=== PATIENT | male | born 1980 | race Caucasian/White ===

== ENCOUNTER 2025-02-17 07:32 | Outpatient (OUT) | payer OTHER, SELFPAY ==
--- OUTSIDE RECORDS SUMMARY | 2025-02-14 01:59 | XMS_ITS | Encounter Summary ---
Author Organization [employer] Address [id number] [address] [place] [address] Care Team Providers Care Senior Private Client Advisor Name Role Phone Piotr Amato Primary Care Provider +1- [phone] Reason for Visit * Reason Comments Headache Encounter Details Date Type Department Care Team (Late st Contact Info) Description 02/14/2025 1:59 AM EDT - 02/14/2025 3:25 AM EDT Emergency [facility] - Emergency [address] [place] [phone] Miguelito Mir MD [address] [place] [address] Vertigo (Primary Dx); Nonintractable headache, unspecified chronicity pattern, unspecified headache type Discharge Disposition: Home Social History Tobacco Use Types Packs/Day Years Used Date Smoking Tobacco: Never Smokeless Tobacco: Never Alcohol Use Standard Drinks/Week Comments Not Currently 0 (1 standard drink = 0.6 oz pur e alcohol) Childcare Answer Date Recorded Childcare Unknown 01/08/2019 Employment Answer Date Recorded Employment Unknown 01/08/2019 Hunger Screening Answer Date Recorded Within the past 12 months we worried whether our food would run out before we got money to buy more. Never True 02/14/2025 Within the past 12 months th e food we bought just didn't last and we didn't have money to get more. Never True 02/14/2025 Purpose - Life Answer Date Recorded Purpose and direction in life Unknown Sex and Gender Information Value Date Recorded Sex Assigned at Not on file Legal Sex Male 12:01 PM EDT Gender Identity Not on file Sexual Orientation Not on file documented as of this encounter Last Filed Vital Signs Vital Sign Reading Time Taken Comments Blood Pressure 125/82 02/14/2025 3:10 AM EDT Pulse 71 02/14/2025 3:10 AM EDT Temperature 36.7 C (98 F) 02/14/2025 2:02 AM EDT Respiratory Rate 16 02/14/2025 3:10 AM EDT Oxygen Saturation 97% 02/14/2025 3:10 AM EDT Inhaled Oxygen Concentration - - Weight 119.3 kg (263 lb) 02/14/2025 2:02 AM EDT Height 177.8 cm (5' 10 ) 02/14/2025 2:02 AM EDT Body Mass Index 37.74 02/14/2025 2:02 AM EDT documented in this encounter Discharge Instructions * Attachments The following attachments cannot be sent through Care Everywhere. * Headache? Adult ED ([place]ah[place]ian) * Dizziness? Adult ED ([place]ahamian) documented in this encounter Medications at Time of Discharge meclizine (ANTIVERT) 25 mg tablet Take 1 tablet (25 mg total) by mouth 3 (three) times a day as needed for dizziness for up to 7 days. 21 tablet 02/14/2025 documented as of this encounter ED Notes * Miguelito Mir MD - 02/14/2025 2:11 AM EDT Images from the original note were not included. [facility] - EMERGENCY Pt Name: Herminio Lopez Birthdate: 1980 Chief Complaint: Chief Complaint Patient presents with ??? Headache History of Present Illness: Patient arrives ambulatory with a 1 day history of dizziness followed by a headache and nausea. Theheadache is positional. If he moves his head around it is much worse. He can find a position of comfort. Has a history of migraines. No weakness numbness or tingling of the extremities. No fever. Past Medical History: Past Medical History: Diagnosis Date ??? Chronic constipation ??? Headache ??? Hypertension ??? Sleep apnea Past Surgical History: History reviewed. No pertinent surgical history. Family History: History reviewed. No pertinent family history. Social History: Social History Socioeconomic History ??? Marital status: Tobacco Use ??? Smoking status: Never ??? Smokeless tobacco: Never Substance and Sexual Activity ??? Alcohol use: Not Currently ??? Drug use: Never ??? Sexual activity: Defer Social Drivers of Health Food Insecurity: No Food Insecurity (02/14/2025) Hunger Screening ??? Food Insecurity - Worry: Never True ??? Food Insecurity - Inability: Never True Review of Systems: Review of Systems Physical Exam: ED Triage Vitals [02/14/25 0202] Temp Heart Rate Resp BP SpO2 36.7 ??C (98 ??F) 89 18 (!) 161/10 98 % Temp Source Heart Rate Source Patient Position BP Location FiO2 (%) Oral Monitor -- -- -- Vitals: 02/14/25 0202 BP: (!) 161/10 Temp: 36.7 ??C (98 ??F) TempSrc: Oral Pulse: 89 Resp: 18 SpO2: 98% Height: 177.8 cm (5' 10 ) Weight: 119.3 kg (263 lb) Physical Exam Vitals and nursing note reviewed. Constitutional: Appearance: He is well-developed. HENT: Head: Normocephalic and atraumatic. Eyes: Conjunctiva/sclera: Conjunctivae normal. Pupils: Pupils are equal, round, and reactive to light. Cardiovascular: Rate and Rhythm: Normal rate and regular rhythm. Heart sounds: Normal heart sounds. Pulmonary: Effort: Pulmonary effort is normal. Breath sounds: Normal breath sounds. Abdominal: Palpations: Abdomen is soft. Musculoskeletal: General: Normal range of motion. Cervical back: Normal range of motion and neck supple. Skin: General: Skin is warm and dry. Findings: No rash. Neurological: Mental Status: He is alert and oriented to person, place, and time. Deep Tendon Reflexes: Reflexes are normal and symmetric. Psychiatric: Behavior: Behavior normal. Procedure: Procedures Re-evaluation: Re-Evaluation Medical Decision Making Amount and/or Complexity of Data Reviewed Radiology: ordered. Risk Prescription drug management. ED Course: Clinical Impressions as of 02/14/25 0236 Vertigo Nonintractable headache, unspecified chronicity pattern, unspecified headache type . ED Disposition None . Please note that portions of this note were completed with a voice recognition program. Efforts were made to edit the dictations but occasionally words are mis-transcribed. Miguelito Mir MD 02/14/25 0211 documented in this encounter Plan of Treatment Not on file documented as of this encounter Procedures Procedure Name Priority Date/Time Associated Diagnosis Comments CT BRAIN WO CONT STAT 02/14/2025 2:37 AM EDT documented in this encounter Results * CT brain without contrast (02/14/2025 2:37 AM EDT) Anatomical Region Laterality Modality Neuro, Head, Head and Neck, Neuro Covera N/A Computed Tomography 02/14/2025 2:40 AM EDT Narrative 02/14/2025 2:41 AM EDT History: Headache with dizziness Exam/Technique: CT images of the brain were obtained without IV contrast. CT does automated exposure control was utilized. All CT scans at this facility use dose modulation, iterative reconstruction, and/or weight based dosing when appropriate to reduce radiation dose to as low as reasonably achievable. Comparison: No relevant prior studies available. Findings: The ventricular system and cortical sulci are appropriate for patient's age group. There is partially empty sella There is no intracranial hemorrhage or gross mass effect. There is no intra- axial or extra-axial fluid accumulation. There is no midline shift or transtentorial herniation. Bone window is unremarkable. The visualized paranasal sinuses are clear. IMPRESSION: Unremarkable noncontrast enhanced brain CT. Finalized by Afshin Sidhu MD on 02/14/2025 2:41 AM Procedure Note Afshin Sidhu MD - 02/14/2025 History: Headache with dizziness Exam/Technique: CT images of the brain were obtained without IV contrast. CT doesautomated exposure control was utilized. All CT scans at this facility use dose modulation, iterativereconstruction, and/or weight based dosing when appropriate to reduceradiation dose to as low as reasonably achievable. Comparison: No relevant prior studies available. Findings: The ventricular system and cortical sulci are appropriate for patient'isa group. There is partially empty sella There is no intracranial hemorrhage or gross mass effect. There is nointra-axial or extra-axial fluid accumulation. There is no midline shiftor transtentorial herniation. Bone window is unremarkable. The visualized paranasal sinuses areclear. IMPRESSION: Unremarkable noncontrast enhanced brain CT. Finalized by Afshin Sidhu MD on 02/14/2025 2:41 AM Miguelito Mir MD IMG CT ORDERABLES Final Result documented in this encounter Visit Diagnoses Diagnosis Vertigo- Primary Dizziness and giddiness Nonintractable headache, unspecified chronicity pattern, unspecified headache type documented in this encounter Administered Medications Inactive Administered Medications - up to 3 most recent administrations Medication Order MAR Action Action Date Dose Rate Site ketorolac (TORADOL) injection 60 mg 60 mg, intramuscular, Once, On 02/14/25 at 0215, For 1 dose, Look-alike/sound-alike medication - verify indication for use. Duration of therapy is not to exceed 5 days. Maximum recommended dose + 120mg/24 hours. Given 02/14/2025 2:16 AM EDT 60 mg Left Ventrogluteal meclizine (ANTIVERT) tablet 25 mg 25 mg, oral, Once, On 02/14/25 at 0215, For 1 dose, Look-alike/sound-alike medication - verify indication for use. Given 02/14/2025 2:17 AM EDT 25 mg ondansetron ODT (ZOFRAN ODT) disintegrating tablet 4 mg 4 mg, oral, Once, On 02/14/25 at 0215, For 1 dose Given 02/14/2025 2:17 AM EDT 4 mg oxyCODONE-acetaminophen (PERCOCET) 5-325 mg per tablet 1 tablet 1 tablet, oral, Once, On 02/14/25 at 0250, For 1 dose, Give 1 tablet to go home Look-alike/sound-alike medication - verify indication for use. Given 02/14/2025 3:19 AM EDT 1 tablet documented in this encounter Active and Recently Administered Medications Times are shown in EDT. Scheduled Medication Order 02/12/2025 02/13/2025 02/14/2025 ketorolac (TORADOL) injection 60 mg (COMPLETED) 60 mg, intramuscular, Once, On 02/14/25 at 0215, For 1 dose, Look-alike/sound-alike medication - verify indication for use. Duration of therapy is not to exceed 5 days. Maximum recommended dose + 120mg/24 hours. 021 (Given - Provid er: Miguelito Lauren RN) meclizine (ANTIVERT) tablet 25 mg (COMPLETED) 25 mg, oral, Once, On 02/14/25 at 0215, For 1 dose, Look-alike/sound-alike medication - verify indication for use. 216 (Given - Provid er: Miguelito Lauren RN) ondansetron ODT (ZOFRAN ODT) disintegrating tablet 4 mg (COMPLETED) 4 mg, oral, Once, On 02/14/25 at 0215, For 1 dose 216 (Given - Provid er: Miguelito Lauren RN) oxyCODONE-acetaminophen (PERCOCET) 5-325 mg per tablet 1 tablet (COMPLETED) 1 tablet, oral, Once, On 02/14/25 at 0250, For 1 dose, Give 1 tablet to go home Look-alike/sound-alike medication - verify indication for use. 0319 (Given - Provid er: Miguelito Lauren RN) documented in this encounter Care Teams Senior Private Client Advisor Relationship Specialty Start Date End Date Piotr Amato DO PCP - General Family Medicine 07/16/20 documented as of this encounter
--- OUTSIDE RECORDS SUMMARY | 2025-02-14 01:59 | XMS_ITS | Encounter Summary ---
Author Organization [employer] Address [id number] [address] [place] [address] Care Team Providers Care Senior Gamemaster Name Role Phone Piotr Amato Primary Care Provider [phone]- [phone] Reason for Visit * Reason Comments Headache Encounter Details Date Type Department Care Team (Late st Contact Info) Description 02/14/2025 1:59 AM EDT - 02/14/2025 3:25 AM EDT Emergency [facility] - Emergency [address] [place] [phone] Miguelito Mir MD [address] [place] [address] Vertigo (Primary Dx); Nonintractable headache, unspecified chronicity [...] through Care Everywhere. * Headache? Adult ED ([place]an) * Dizziness? Adult ED ([place]) documented in this encounter Medications at Time of Discharge meclizine (ANTIVERT) 25 mg tablet Take 1 tablet (25 mg total) by mouth 3 (three) times a day as needed for dizziness for up to 7 days. 21 tablet 02/14/2025 documented as of this encounter ED Notes * Miguelito Mir MD - 02/14/2025 2:11 AM EDT Images from the original note were not included. [facility] - EMERGENCY Pt Name: Herminio Lopez Birthdate: [...] documented in this encounter Care Teams Senior Gamemaster Relationship Specialty Start Date End Date Piotr Amato DO PCP - General Family Medicine 07/16/20 documented as of this encounter
--- OUTSIDE RECORDS SUMMARY | 2025-02-16 06:33 | XMS_ITS | Continuity of Care Document ---
Author Organization [facility] Address [address] [place] [address] Phone Care Team Providers Care Data Center Engineer Name Role Phone Lima Piotr Bolaños DO Primary Care Provider Hector Serrato APRN Attending Provider [phone] Care Teams Patient Care Team Team Status: Active Member Role Status Dates Piotr Amato DO Primary Care Provider Active Patient Care Team Team Status: Inactive Member Role Status Dates Piotr Amato DO Primary Care Provider Active Start: February 16, 2025 End: February 16, 2025 Hector Serrato APRN Attending Provider Active Start: February 16, 2025 End: February 16, 2025 Chief Complaint and Reason for Visit Chief Complaint Admit Date Dizziness February 16, 2025 9:56 am Allergies, Adverse Reactions, Alerts Allergen Type Severity Reaction Last Updated Verified Status acetaminophen Allergy Unknown mood changes February 16, 2025 10:04 am Yes Active hydrocodone Allergy Unknown mood changes February 16, 2025 10:04am Yes Active Social History Smoking Status Unknown if ever smoked Observation Status Observation Response Date of Response Legal Sex Male (finding) Sex Assigned At Male November 29, 983 Vital Signs Vital Reading Result Reference Range Collection Date/Time Weight 119.40 kg February 16, 2025 9:59am Body Temperature 98.7 [degF] 97.6-99.0 February 16, 2025 9:59am Heart Rate 76 /min 60-100 February 16, 2025 9:59am Respiratory rate 18 /min 12-24 February 16, 2025 9:59am Oxygen saturation by Pulse oximetry 98 % 95-100 February 16, 2025 9:59 am BP Systolic 144 mm[Hg] 100-140 February 16, 2025 9:59am BP Diastolic 92 mm[Hg] 60-100 February 16, 2025 9:59am Advance Directives Advance Directive Response Recorded Date/ Time Advance Directives No February 16 9:55am Insurance Providers Guarantor Sebastian Resendiz Address [address] [facility] [address] Contact Info. Home Phone: Payer Policy Id Subscriber's Name Subscriber Id Effectiv e Date Expiration Date [employer] Claims [id number] Sebastian Resendiz [id number] Encounters Encounter Location(s) Arrival/Admit Date Discharge/Depart Date Provider(s) Departed Physician/Prov ider Office Visit -[facility] Family Medicine Mai February 16, 2025 9:56am February 16, 2025 10:32am Hector Serrato APRN Plan of Treatment Future Tests Future scheduled test information is unavailable Pending Tests Pending diagnostic test information is unavailable Future Visits Future appointment information is unavailable Referrals to Other Providers Referral information is unavailable Future Procedures Procedure Name Ordered Date Scheduled Date Complete Blood Count Auto Diff February 16, 2025 1 0:14am CMP with reflex to A1C February 16, 2025 10:14am Lipid Panel February 16, 2025 10:14am Thyroid Stim Hormone w/Rflx February 16, 2025 10:1 4am Vitamin D 25 Hydroxy Total February 16, 2025 10:20 am Future Medications Future medication information is unavailable Patient Instructions Patient instructions are unavailable
--- OUTSIDE RECORDS SUMMARY | 2025-02-16 11:21 | XMS_ITS | Encounter Summary ---
Author Organization [employer] Address [facility] [id number] [address] [place] [address] Care Team Providers Care Drama Teacher Name Role Phone Piotr Amato DO Primary Care Provider [phone]- [phone] Encounter Details Date Type Department Care Team (Latest Contact Info) Description 02/14/2025 Travel Social History Tobacco Use Types Packs/Day Years [...] on file documented as of this encounter Plan of Treatment Not on file documented as of this encounter Visit Diagnoses Not on filedocumented in this encounter Care Teams Drama Teacher Relationship Specialty Start Date End Date Piotr Amato DO PCP - General Family Medicine 12/18/20 documented as of this encounter
--- OUTSIDE RECORDS SUMMARY | 2025-02-16 11:21 | XMS_ITS | Clinical Summary ---
Author Organization [facility] Address [address] [place], [place] [id number] Care Team Providers Care Plasma Specialist Name Role Phone Unavailable Primary Care Provider Unavailabl e Allergies Active Allergy Reactions Criticality Noted Date Comments Oxycodone-Acetaminoph en Other: See Comments 04/10/2018 States mental confusion Seasonal Allergies Intolerance 04/03/2018 Medications multivitamin tablet Take 1 tablet by mouth once daily. Active docusate sodium (COLACE) 100 mg capsule Take 1 capsule by mouth twice daily. 28 capsule 8 Active Additional Information Patient not taking.Reason: No Longer Needed - PRN Medication, Reported on 04/26/2018 simethicone, chewable (MYLICON) 80 mg chewable tablet Take 1 tablet by mouth four times daily as needed (gas pain). [address] (PROTONIX) 40 mg tablet Take 1 tablet by mouth once daily. 30 tablet 8 Active Additional Information Patient not taking.Reason: No Longer Needed - PRN Medication, Reported on 05/17/2018 omeprazole (PRILOSEC) 20 mg capsule Take 2 capsules by mouth once daily. 60 capsule 8 Active polyethylene glycol 3350 (MIRALAX) 17 gram/dose powder Take by mouth once daily. Active Active Problems Problem Noted Date Diagnosed Date Obesity, Class II, BMI 35-39.9 04/08/2018 Incisional hernia 04/03/2018 Overview (04/03/2018): Added automatically from request for surgery [id number] Obesity (BMI 30-39.9) 04/03/2018 Resolved Problems Problem Noted Date Diagnosed Date Resolved Date Ileus 04/10/2018 04/15/2018 Social History Tobacco Use Types Packs/Day Years Used Date Smoking Tobacco: Never Smokeless Tobacco: Never Alcohol Use Standard Drinks/Week Comments No 0 (1 standard drink = 0.6 oz pur e alcohol) very rare PHQ-2 Answer Date Recorded PHQ2 Score 0 04/10/2018 Area Deprivation Index Answer Date Harsha rded National Score (1-100), lower number is lower ri sk Not on file 07/08/2020 State Score (1-10), lower number is lower risk N ot on file 07/08/2020 Data from: https://www.neighborhoodatlas.[facility]/. Last address used for calculation Not on file 07/08/2020 Sex and Gender Information Value Date Recorded Sex Assigned at Not on file Legal Sex Male 9:34 AM EDT Gender Identity Not on file Sexual Orientation Not on file Last Filed Vital Signs Vital Sign Reading Time Taken Comments Blood Pressure 123/84 05/17/2018 10:52 AM EDT Pulse 66 05/17/2018 10:52 AM EDT Temperature 36.8 C (98.3 F) 04/24/2018 9:40 AM EDT Respiratory Rate 16 04/15/2018 4:08 AM EDT Oxygen Saturation 100% 05/17/2018 10:52 AM EDT Inhaled Oxygen Concentration - - Weight 104.3 kg (230 lb) 05/17/2018 10:52 AM EDT Height 177.8 cm (5' 10 ) 05/17/2018 10:52 AM EDT Body Mass Index 33 05/17/2018 10:52 AM EDT Plan of Treatment Health Maintenance Due Date Last Done Comments Anxiety Screening 2000 Depression Screening 2000 HIV Screening 2000 Hepatitis C Screening 2000 Hepatitis B Vaccine (1 of 3 - 19+ 3-dose series) 11/29 Lipid Screening 2017 Covid-19 Vaccine ( - 2023- season) 2024 DTaP,Tdap,Td Vaccine (2 - Td or Tdap) 07/23/2024 Influenza Vaccine (#1) 2025 Medical Devices Implanted Type Area Laundromat Manager Device Identifier Shelf Expiration Date Model / Serial / Lot Mesh Ventralight St Sepra Echo Ps 4.5in [place] Seprafilm Polypropylene - [id number] Implanted: 018 at [facility] (Quantity not on file) Mesh N/A: Abdomen [employer] 12/25/2019 [id number] / / [id number] Insurance [facility]
--- OUTSIDE RECORDS SUMMARY | 2025-02-16 11:21 | XMS_ITS | Clinical Summary ---
Author Organization [facility] [employer] [facility] Address [facility] [id number] [address] [place] [address] Care Team Providers Care Book Jacket Cover Machine Operator Name Role Phone Piotr Amato Primary Care Provider Allergies Active Allergy Reactions Criticality Noted Date Comments Hydrocodone-Acetaminophen Abnormal Behavior 02/2020 Medications * This document contains information received from the source organization and may not represent a complete record from that organization. meclizine (ANTIVERT) 25 mg tablet Take 1 tablet (25 mg total) by mouth 3 (three) times a day as needed for dizziness for up to 7 days. 21 tablet 5 02/22/20 25 Active Encounters Date Type Department Care Team Description 02/14/2025 1:59 AM EDT - 02/14/2025 3:25 AM EDT Emergency [facility] - Emergency [address] [place] [phone] Miguelito Mir MD Vertigo (Primary Dx); Nonintractable headache, unspecified chronicity pattern, unspecified headache type Discharge Disposition: Home 02/14/2025 Travel from Last 3 Months Social History Tobacco Use Types Packs/Day Years [...] Mass Index 37.74 02/14/2025 2:02 AM EDT Plan of Treatment Health Maintenance Due Date Last Done Comments Depression Screening 1994 Adult BMI Follow Up Plan 2000 DTaP,Tdap and Td Vaccines (2 - Td or Tdap) 07/23/2024 07/23/2014 Influenza Vaccine 03/30/2025 Adult BMI Screening 02/14/2026 02/14/2025 Tobacco Screening 02/14/2026 02/14/2025 Medical Devices Not on file Procedures Procedure Name Priority Date/Time Associated Diagnosis Comments CT BRAIN WO CONT STAT 02/14/2025 2:37 AM EDT from Last 3 Months Results * CT brain without contrast (02/14/2025 [...] Mir MD IMG CT ORDERABLES Final Result from Last 3 Months Insurance [id number] Care Teams Book Jacket Cover Machine Operator Relationship Specialty Start Date End Date Piotr Amato DO PCP - General Family Medicine 07/16/20
--- OUTSIDE RECORDS SUMMARY | 2025-02-17 07:34 | XMS_ITS | Encounter Summary ---
Author Organization [employer] Address [facility] [id number] [address] [place] [address] Care Team Providers Care Jigmaker Name Role Phone Piotr Amato DO Primary Care Provider [phone]- [phone] Encounter Details Date Type Department Care Team [...] on filedocumented in this encounter Care Teams Jigmaker Relationship Specialty Start Date End Date Piotr Amato DO PCP - General Family Medicine 12/18/20 documented as of this encounter
--- OUTSIDE RECORDS SUMMARY | 2025-02-17 07:34 | XMS_ITS | Clinical Summary ---
Author Organization [facility] Address [address] [place], [place] [id number] Care Team Providers Care Partition Setter Name Role Phone Unavailable Primary Care Provider [...] (04/03/2018): Added automatically from request for surgery [id number] Obesity (BMI 30-39.9) 04/03/2018 Resolved Problems Problem [...] N ot on file 07/08/2020 Data from: https://www.neighborhoodatlas.[facility] Last address used for calculation Not on [...] (#1) 2025 Medical Devices Implanted Type Area Pediatric Dietician Device Identifier Shelf Expiration Date Model / Serial / Lot Mesh Ventralight St Sepra Echo Ps 4.5in [place] Sepra[employer] Polypropylene - [id number] Implanted: 018 at [facility] (Quantity not on file) Mesh N/A: Abdomen [employer] 12/25/2019 [id number] / / [id number] Insurance [facility]
--- OUTSIDE RECORDS SUMMARY | 2025-02-17 07:34 | XMS_ITS | Clinical Summary ---
Author Organization [facility] Address [address] [place] [address] Care Team Providers Care Field Marketing Team Leader Name Role Phone Unavailable Primary Care Provider Unavailabl e Social History Tobacco Use Types Packs/Day Years Used Date Smoking Tobacco: Never Assessed Sex and Gender Information Value Date Recorded Sex Assigned at Not on file Legal Sex Male 8:32 PM EDT Gender Identity Not on file Sexual Orientation Not on file Last Filed Vital Signs Vital Sign Reading Time Taken Comments Blood Pressure 118/82 02/14/2019 12:00 PM EDT Pulse - - Temperature - - Respiratory Rate - - Oxygen Saturation - - Inhaled Oxygen Concentration - - Weight 77.1 kg (170 lb) 02/14/2019 12:00 PM EDT Height 177.8 cm (5' 10 ) 02/14/2019 12:00 PM EDT Body Mass Index 24.39 02/14/2019 12:00 PM EDT Plan of Treatment Not on file
--- OUTSIDE RECORDS SUMMARY | 2025-02-17 07:34 | XMS_ITS | Clinical Summary ---
Author Organization [facility] [employer] [facility] tem Address [id number] [address] [place] [address] Care Team Providers Care Door To Door Selling Distributor Name Role Phone Piotr Amato Primary Care [...] EDT - 02/14/2025 3:25 AM EDT Emergency [facility] - Emergency [address] [place] [id number] Miguelito Mir MD Vertigo (Primary Dx); Nonintractable [...] Final Result from Last 3 Months Insurance [id number] PLAN Care Teams Door To Door Selling Distributor Relationship Specialty Start Date End Date Piotr Amato DO PCP - General Family Medicine 07/16/20
[2025-02-17 07:45] LABS: Hematocrit 46.8 % (42.0-54.0); Hemoglobin 15.5 g/dL (14.0-18.0); Immature Granulocytes Abs Auto 0.01 10^3/uL (0.00-0.03); Immature Granulocytes Pct Auto 0.2 % (0.0-0.5); Lymphocytes Absolute Auto 1.7 10^3/uL (1.2-3.8); Mean Corpuscular HGB Conc 33.1 g/dL (29.9-35.2); Mean Corpuscular Hemoglobin 28.8 pg (25.9-34.0); Mean Corpuscular Volume 86.8 fL (80.0-94.0); Platelet Count 273 10^3/uL (150-450); Red Blood Count 5.39 10^6/uL (4.70-6.10); White Blood Count 6.3 10^3/uL (4.0-11.0)
[2025-02-17 08:27] LABS: Potassium 4.1 mmol/L (3.5-5.1); Sodium 143 mmol/L (136-145)
[2025-02-17 08:28] LABS: Alanine Aminotransferase 43 U/L (16-63); Albumin Globulin Ratio 1.2; Albumin Level 4.2 g/dL (3.4-5.0); Alkaline Phosphatase 70 U/L (46-116); Anion Gap 14.8; Aspartate Amino Transferase 24 U/L (15-37); Blood Urea Nitrogen 16.0 mg/dL (7.0-18.0); Calcium 9.3 mg/dL (8.5-10.1); Carbon Dioxide 27.3 mmol/L (21.0-32.0); Chloride 105 mmol/L (98-107); Estimated GFR (African America >60 (>=60 mL/min/1.73m^2); Estimated GFR (Non-African Ame >60 (>=60 mL/min/1.73m^2); Globulin 3.5 g/dL; Glucose 103 mg/dL (74-106); Total Protein 7.7 g/dL (6.4-8.2)
[2025-02-17 08:29] LABS: Cholesterol 162 mg/dL (<=200); HDL Cholesterol 51 mg/dL (40-60); TSH W/ REFLEX FT4 1.167 uIU/mL (0.358-3.740); Triglycerides 97 mg/dL (<=150); VLDL CHOLESTEROL 19.4 mg/dL
== END 2025-02-17 07:33 | disposition home or self-care (01) ==
LOC: LAB 07:32
DX: Z00.00 Encounter for general adult medical examination without abnormal findings (principal); Z13.6 Encounter for screening for cardiovascular disorders; Z13.1 Encounter for screening for diabetes mellitus; R53.83 Other fatigue; R42 Dizziness and giddiness; E55.9 Vitamin D deficiency, unspecified
CPT/HCPCS: 36415; 80053; 80061; 82306; 84443; 85025

== ENCOUNTER 2025-04-10 09:47 | Outpatient (OUT) | payer OTHER, SELFPAY ==
--- OUTSIDE RECORDS SUMMARY | 2025-04-03 07:37 | XMS_ITS | Continuity of Care Document ---
Author Organization [facility] Address [address] [place] [address] Phone Care Team Providers Care Plating Operator Name Role Phone Lima Piotr Bolaños DO Primary Care Provider [phone] Hector Serrato APRN Attending Provider Tamie Hoang LPN Attending Provider Unav ailable Piotr Amato DO Attending Provider Care Teams Patient Care Team Team Status: Active Member Role Status Dates Piotr Amato DO Primary Care Provider Active Visit Care Team Team Status: Inactive Member Role Status Dates Piotr Amato DO Primary Care Provider Active Start: February 16, 2025 End: February 16, 2025 Hector Serrato APRN Attending Provider Active Start: February 16, 2025 End: February 16, 2025 Visit Care Team Team Status: Active Member Role Status Dates Piotr Amato DO Primary Care Provider Active Start: February 17, 2025 Hector Serrato APRN Attending Provider Active Start: February 17, 2025 Visit Care Team Team Status: Active Member Role Status Dates Piotr Amato DO Primary Care Provider Active Start: February 17, 2025 Tamie Hoang LPN Attending Provider Active Start: February 17, 2025 Patient Care Team Team Status: Inactive Member Role Status Dates Piotr Amato DO Primary Care Provider Active Start: April 03, 2025 End: April 03, 2025 Piotr Amato DO Attending Provider Active Start: April 03, 2025 End: April 03, 2025 Chief Complaint and Reason for Visit Chief Complaint Admit Date Dizziness February 16, 2025 9:56 am Amb Documentation February 17, 2025 9:41 am EST CARE April 03, 2025 10:58am Allergies, Adverse Reactions, Alerts Allergen Type Severity Reaction Last Updated Verified Status acetaminophen Allergy Unknown mood changes April 03, 2025 11:08am Yes Active hydrocodone Allergy Unknown mood changes April 032024 11:08am Yes Active Social History Smoking Status Status Start Date End Date Date of Observa tion Never smoked tobacco (finding) April 03, 2025 11:05am Observation Status Observation Response Date of Response Legal Sex Male (finding) Sex Assigned At Male [birth year], 1 983 Family History Relationship Condition Age at Onset Recorded Date/T dionisio maternal grandmother Hypertension Unknown maternal grandfather Cerebrovascular accident (CVA) Un known Medications Medication Status Dose Units Route Directions Qty Days St art Date Stop Date End Date Instructions Adherence Cyclobenzap rine 10 mg tablet Active 10 MG PO Daily at bedtime 30 kate 2024 12:00a m Complies with drug therapy Meclizine 25 mg tablet Discont inued 25 MG PO Three times daily as needed for vertigo February 16, 2025 12:00a m Septe mber 2024 11:28 am Relevant Diagnostic Tests and/or Laboratory Data Laboratory Results Test Collection Date/Time Result Date/Time Result Interpretation Reference Range Result Comment Performing Site Cholester ol/HDL Ratio February 17, 2025 7:37am February 17, 2025 7:37am 3.2 3.3 - 4.4 LOW RISK4.4 - 7.1 AVERAGE RISK7.1 - 11.0 MODERATE RISK>11.0 HIGH RISK Anion Gap February 17, 2025 7:37am February 17, 2025 7:37am 14.8 Thyroid Stimulati ng Hormone 3rd Gen February 17, 2025 7:37am February 17, 2025 7:37am 1.167 u[iU]/m L 0.358-3.74 0 Basophils # (Auto) February 17, 2025 7:37am February 17, 2025 7:37am 0.0 10 3/uL 0.0-0.1 25-Hydrox y Vitamin D Total February 17, 2025 7:37am February 17, 2025 7:37am 22.2 ng/mL <20 ng/mL Vit D - <30 ng/mL Vit D insufficient 30-100 ng/mL Vit D sufficient>1 00 ng/mL Potential Toxicity Cholester ol Level February 17, 2025 7:37am February 17, 2025 7:37am 162 mg/dL <=200 Albumin/G lobulin Ratio February 17, 2025 7:37am February 17, 2025 7:37am 1.2 Basophils (%) (Auto) February 17, 2025 7:37am February 17, 2025 7:37am 0.3 % 0.2-2.0 HDL Cholester ol February 17, 2025 7:37am February 17, 2025 7:37am 51 mg/dL 40-60 > or =60 mg/dl - LOW CARDIOVASCUL AR RISK<40 mg/dl - HIGH CARDIOVASCUL AR RISK Albumin February 17, 2025 7:37am February 17, 2025 7:37am 4.2 g/dL 3.4-5.0 Eosinophi ls # (Auto) February 17, 2025 7:37am February 17, 2025 7:37am 0.1 10 3/uL 0.0-0.7 LDL Cholester ol, Calculate d February 17, 2025 7:37am February 17, 2025 7:37am 92.0 mg/dL <100 mg/dl [id number] 29 mg/dl NEAR OR ABOVE [id number] 59 mg/dl BORDERLINE [id number] mg/dl HIGH>190 mg/dl VERY HIGH Alkaline Phosphata se February 17, 2025 7:37am February 17, 2025 7:37am 70 U/L 46-116 Eosinophi ls (%) (Auto) February 17, 2025 7:37am February 17, 2025 7:37am 2.1 % 0.9-7.0 Triglycer ides Level February 17, 2025 7:37am February 17, 2025 7:37am 97 mg/dL <=150 Alanine Aminotran sferase (ALT/SGPT ) February 17, 2025 7:37am February 17, 2025 7:37am 43 U/L 16-63 Hematocri t February 17, 2025 7:37am February 17, 2025 7:37am 46.8 % 42.0-54.0 VLDL Cholester ol February 17, 2025 7:37am February 17, 2025 7:37am 19.4 mg/dL Aspartate Amino Transf (AST/SGOT ) February 17, 2025 7:37am February 17, 2025 7:37am 24 U/L 15-37 Hemoglobi n February 17, 2025 7:37am February 17, 2025 7:37am 15.5 g/dL 14.0-18.0 BUN/Creat inine Ratio February 17, 2025 7:37am February 17, 2025 7:37am 16.5 Immature Granulocy te # (Auto) February 17, 2025 7:37am February 17, 2025 7:37am 0.01 10 3/uL 0.00-0.03 Blood Urea Nitrogen February 17, 2025 7:37am February 17, 2025 7:37am 16.0 mg/dL 7.0-18.0 Immature Granulocy te % (Auto) February 17, 2025 7:37am February 17, 2025 7:37am 0.2 % 0.0-0.5 Calcium Level February 17, 2025 7:37am February 17, 2025 7:37am 9.3 mg/dL 8.5-10.1 Lymphocyt es # (Auto) February 17, 2025 7:37am February 17, 2025 7:37am 1.7 10 3/uL 1.2-3.8 Chloride Level February 17, 2025 7:37am February 17, 2025 7:37am 105 mmol/L 98-107 Lymphocyt es (%) (Auto) February 17, 2025 7:37am February 17, 2025 7:37am 27.3 % 20.5-60.0 Carbon Dioxide Level February 17, 2025 7:37am February 17, 2025 7:37am 27.3 mmol/L 21.0-32.0 Mean Corpuscul ar Hemoglobi n February 17, 2025 7:37am February 17, 2025 7:37am 28.8 pg 25.9-34.0 Creatinin e February 17, 2025 7:37am February 17, 2025 7:37am 0.97 mg/dL 0.70-1.30 Mean Corpuscul ar Hemoglobi n Concent February 17, 2025 7:37am February 17, 2025 7:37am 33.1 g/dL 29.9-35.2 Estimated GFR () February 17, 2025 7:37am February 17, 2025 7:37am >60 >=60 mL/min/1.7 3m 2 Mean Corpuscul ar Volume February 17, 2025 7:37am February 17, 2025 7:37am 86.8 fL 80.0-94.0 Estimated GFR (Non-Afri can Croatian February 17, 2025 7:37am February 17, 2025 7:37am >60 >=60 mL/min/1.7 3m 2 Monocytes # (Auto) February 17, 2025 7:37am February 17, 2025 7:37am 0.7 10 3/uL 0.3-0.8 Globulin February 17, 2025 7:37am February 17, 2025 7:37am 3.5 g/dL Monocytes (%) (Auto) February 17, 2025 7:37am February 17, 2025 7:37am 10.6 % 1.7-12.0 Glucose Level February 17, 2025 7:37am February 17, 2025 7:37am 103 mg/dL 74-106 Mean Platelet Volume February 17, 2025 7:37am February 17, 2025 7:37am 8.4 fL Below low normal 9.5-13.5 Potassium Level February 17, 2025 7:37am February 17, 2025 7:37am 4.1 mmol/L 3.5-5.1 Neutrophi ls # (Auto) February 17, 2025 7:37am February 17, 2025 7:37am 3.8 10 3/uL 1.4-6.5 Sodium Level February 17, 2025 7:37am February 17, 2025 7:37am 143 mmol/L 136-145 Neutrophi ls (%) (Auto) February 17, 2025 7:37am February 17, 2025 7:37am 59.5 % 43.0-75.0 Total Bilirubin February 17, 2025 7:37am February 17, 2025 7:37am 0.7 mg/dL 0.2-1.0 Platelet Count February 17, 2025 7:37am February 17, 2025 7:37am 273 10 3/uL 150-450 Total Protein February 17, 2025 7:37am February 17, 2025 7:37am 7.7 g/dL 6.4-8.2 Red Blood Count February 17, 2025 7:37am February 17, 2025 7:37am 5.39 10 6/uL 4.70-6.10 Red Cell Distribut ion Width February 17, 2025 7:37am February 17, 2025 7:37am 13.7 % 11.0-15.0 Corrected White Blood Count February 17, 2025 7:37am February 17, 2025 7:37am 6.3 10 3/uL 4.0-11.0 Vital Signs Vital Reading Result Reference Range [...] 92 mm[Hg] 60-100 February 16, 2025 9:59am Height 70 [in_i] April 03, 2025 11:08am Weight 118.38 kg April 03, 2025 11:08am Heart Rate 68 /min 60-100 April 03, 2025 11:08am Oxygen saturation by Pulse oximetry 98 % 95-100 April 03, 2025 11:08am BP Systolic 128 mm[Hg] 100-140 April 03, 2025 11:08am BP Diastolic 70 mm[Hg] 60-100 April 03, 2025 11:08am BMI (Body Mass Index) 37.4 kg/m2 Sept2024 11:08am Advance Directives Advance Directive Response Recorded Date/ Time Advance Directives No February 16 9:55am Insurance Providers Guarantor Sebastian Resendiz Address [address] [facility] [facility] [address] Contact Info. Home Phone: Payer Policy Id Subscriber's Name Subscriber Id Johan ruiz Date Expiration Date [employer] Claims [id number] Sebastian Resendiz [id number] Encounters Encounter Location(s) Arrival/Admit Date Discharge/Depart Date Provider(s) Departed Physician/Prov ider Office Visit -[facility] February 16, 2025 9:56am February 16, 2025 10:32am Hector Serrato APRN Non-patient / Non-visit -[facility] February 17, 2025 7:37am Hector Serrato APRN Non-patient / Non-visit -[facility] February 17, 2025 9:41am Tamie Hoang Departed Physician/Prov ider Office Visit -[facility] April 03, 2025 10:58am April 03, 2025 11:35am Piotr Amato DO Plan of Treatment Author Hector Serrato [facility] Authored February 16, 2025 11:2 8am 44 y.o. male presents to the office for an ER follow up. He was seen at [facility] in [place]. CT of head/brain reviewed today in the office with no acute findings. No lab work was performed. Patient was provided Ketoralac injection and started on Meclizine. He does report some relief but states the 25mg dose makes him drowsy. Symptoms have improved a little. Advised for patient to obtain lab work to evaluate for any underlying metabolic causes. Will call with results. Discussed and demonstrated the Jeremy Maneuver. Recommended that he attempt at home. He may reduce the dose of Meclizine to 12.5mg during the day d/t drowsiness. Advised patient that he will need to complete a new patient questionnaire and to reestablish with PCP due to being over 5 yrs since last seen. Once established to follow up if symptoms do not improve. Reviewed red flags, SE's of the medication and return precautions. He acknowledges understanding and agrees. Future Tests Future scheduled test information is unavailable Pending Tests Pending diagnostic test information is unavailable Future Visits Future appointment information is unavailable Referrals to Other Providers Referral information is unavailable Future Procedures Future procedure information is unavailable Future Medications Future medication information is unavailable Patient Instructions Patient instructions are unavailable
--- OUTSIDE RECORDS SUMMARY | 2025-04-10 09:50 | XMS_ITS | Clinical Summary ---
Author Organization [facility] Address [address] [place], [place] [address] Care Team Providers Care Manager Fire Name Role Phone Unavailable Primary Care Provider [...] (04/03/2018): Added automatically from request for surgery [id number] Obesity (BMI 30-39.9) 04/03/2018 Resolved Problems Problem [...] N ot on file 07/08/2020 Data from: [email or web address].[email or web address] Last address used for calculation Not on [...] of 3 - 19+ 3-dose series) 11/29 HPV Vaccine (1 - 3-dose SCDM series) 2009 Lipid Screening 2017 DTaP,Tdap,Td Vaccine (2 - Td or Tdap) 07/23/2024 Influenza Vaccine (#1) 2025 Medical Devices Implanted Type Area Rejoiner Device Identifier Shelf Expiration Date Model / Serial / Lot Mesh Ventralight St Sepra Echo Ps 4.5in [place] Seprafilm Polypropylene - [id number] Implanted: 018 at [facility] (Quantity not on file) Mesh N/A: Abdomen [employer] 12/25/2019 [id number] / / [id number] Insurance [facility]
--- OUTSIDE RECORDS SUMMARY | 2025-04-10 09:50 | XMS_ITS | Clinical Summary ---
Author Organization [facility] Address [address] [place] [address] Care Team Providers Care Paver Operator Name Role Phone Unavailable Primary Care Provider [...]
--- OUTSIDE RECORDS SUMMARY | 2025-04-10 09:50 | XMS_ITS | Clinical Summary ---
Author Organization [facility] tem Address [id number] [address] [place] [address] Care Team Providers Care Bookkeeping Clerks Supervisor Name Role Phone Piotr Amato Primary Care Provider [phone] Allergies Active Allergy Reactions Criticality Noted Date Comments Hydrocodone-Acetaminophen Abnormal Behavior 02/2020 Medications * This document contains information received from the source organization and may not represent a complete record from that organization. No known medications Encounters Date Type Department Care Team Description 02/14/2025 1:59 AM EDT - 02/14/2025 3:25 AM EDT Emergency [facility] - Emergency [address] [place] [phone] Miguelito Mir MD Vertigo (Primary Dx); Nonintractable [...] on 02/14/2025 2:41 AM Miguelito Mir MD IM CT ORDERABLES Final Result from Last 3 Months Insurance [id number] PLAN Care Teams Bookkeeping Clerks Supervisor Relationship Specialty Start Date End Date Piotr Amato DO PCP - General Family Medicine 07/16/20
== END 2025-04-10 09:48 | disposition home or self-care (01) ==
LOC: LAB 09:48
DX: E55.9 Vitamin D deficiency, unspecified (principal)
CPT/HCPCS: 36415; 82306